=== PATIENT | male | born 1955 | race Caucasian/White ===

== ENCOUNTER 2019-08-17 08:33 | Inpatient (IN) | payer MEDICARE, SELFPAY ==
[2019-08-17] VITALS (20 sets, daily range): BP systolic 126–185; BP diastolic 73–116; PULSE 78–100; RESP 16–34; TEMP 36.4; O2SAT 88–98; BMI 28.8
--- NOTE | 2019-08-17 08:48 | XRR_ITS ---
PROCEDURE INFORMATION: Exam: XR Chest, 1 View Exam date and time: 08/17/2019 8:51 AM Age: 64 years old Clinical indication: Shortness of breath; Additional info: Dyspnea TECHNIQUE: Imaging protocol: XR of the chest Views: Frontal portable upright view of the chest. COMPARISON: CR Chest 2 views* [id number] 01/31/2015 7:33 AM FINDINGS: Lungs: The lungs are clear bilaterally. The pulmonary vasculature is normal. Pleural space: No pleural effusion. No pneumothorax. Heart/Mediastinum: The heart is normal in size and contour. Mediastinum: Stable. Bones/joints: Stable. Chronic T8 vertebral body compression deformity less conspicuous than on prior imaging. Other findings: EKG lead present overlying the chest. XR/XR chest 1V portable [id number] IMPRESSION: No acute cardiopulmonary abnormality identified.
--- NOTE | 2019-08-17 08:50 | ECG_ITS ---
Measurements Intervals [place] Rate: 88 P: 79 NE: 174 QRS: 48 QRSD: 102 T: 73 QT: 350 QTc: 425 SINUS RHYTHM WITH OCCASIONAL VENTRICULAR PREMATURE COMPLEXES INDETERMINATE AXIS Compared to ECG 01/31/2015 07:50:43 Ventricular premature complex(es) now present Indeterminate axis now present Sinus bradycardia no longer present T-wave abnormality no longer present Electronically Signed On 08-18-2019 20:02:40 CDT by Latoya Key M.D. [id number] f
--- NOTE | 2019-08-17 08:51 | ED_ITS ---
HPI - SOB/Dyspnea General: Chief Complaint: Shortness of Breath/Dyspnea Stated Complaint: sob Time Seen by Provider: 08/17/19 08:38 History of Present Illness: HPI Narrative: Increasing shortness of breath for the past 2 days. Patient is a 1-1/2 pack-a-day smoker. He does not use oxygen or to take nebulizer treatments. MD elicited complaint: shortness of breath Pertinent past history: COPD Onset (ago): day(s) Timing: constant and progressively worsening Severity: severe Exacerbating factors: exertion Relieving factors: nothing Known history of: COPD Review of Systems General: Reports: 10 or more systems reviewed and unremarkable except in HPI and below Resp: Reports: dyspnea and wheezing PFS ED PFSH: Social History Smoking and tobacco status: current every day smoker Physical Exam HENMT: COMMON NORMALS: normocephalic and atraumatic HEAD & SCALP: normocephalic and atraumatic Neck/C-Spine: COMMON NORMALS: full ROM, no meningeal signs and no JVD Resp: EFFORT & INSPECTION: Yes respiratory distress, Yes labored, Yes uses accessory muscles and Yes audible wheezes AUSCULTATION: wheezes Cardio: COMMON NORMALS: no JVD, regular rate and regular rhythm RATE: regular rate RHYTHM: regular rhythm GI: COMMON NORMALS: Normal to inspection, nondistended, normoactive bowel sounds present Extremity: COMMON NORMALS: normal to inspection, full ROM and no pedal edema Neuro: MENINGEAL SIGNS: Yes no meningeal signs Course Vital Signs: Vital signs: Vital Signs Temperature 97.6 F 08/17/19 08:40 Pulse Rate 83 08/17/19 10:34 Respiratory Rate 22 H 08/17/19 10:34 Blood Pressure 126/91 08/17/19 10:34 Pulse Oximetry 97 08/17/19 10:34 MDM - SOB/Dyspnea Lab Data: Labs: Lab Results 08/17/19 08/17/19 08/17/19 Range/Units 08:45 08:45 08:45 WBC 11.8 H (4.0-10.0) 10^3/ uL RBC 5.85 H (4.1-5.3) 10^6/u L Hgb 18.7 H (11.7-16.6) g/dL Hct 56.9 H (42.0-52.0) % MCV 97.3 H (80-94) fL MCH 32.0 (28.0-34.0) pg MCHC 32.9 (30.0-36.0) g/dL RDW 12.8 (12.1-15.1) % Plt Count 221 (130-400) 10^3/c mm MPV 10.0 (7.4-10.4) fL Neut % (Auto) 67.5 % Lymph % (Auto) 19.4 % [place] % (Auto) 6.4 % Eos % (Auto) 6.0 % Baso % (Auto) 0.4 % Neut # (Auto) 8.0 H (1.8-7.7) 10^3/u L Lymph # (Auto) 2.3 (0.8-4.8) 10^3/u L [place] # (Auto) 0.8 (0.2-0.9) 10^3/u L Eos # (Auto) 0.7 (0.0-0.8) 10^3/u L Baso # (Auto) 0.1 (0.0-0.1) 10^3/u L Nucleated RBC % (a uto) 0 % Nucleated RBCs # 0.0 /100WBC Sodium 136 (136-145) mmol/L Potassium 4.6 (3.5-5.1) mmol/L Chloride 101 (98-107) mmol/L Carbon Dioxide 22 (22-29) mmol/L Anion Gap 17.6 (5-19) BUN 10 (8-23) mg/dL Creatinine 0.7 (0.7-1.2) mg/dL GFR Calculation 113.2 (90-130) mL/min Glucose 120 H (65-115) mg/dL Calculated Osmolal ity 279 L (285-295) mOsm/k g Lactic Acid 1.5 (0.5-2.2) mmol/L Calcium 9.4 (8.5-10.5) mg/dL Total Bilirubin 1.1 (0.15-1.2) mg/dL AST 35 (0-40) U/L ALT 39 (0-41) U/L Alkaline Phosphata se 78 (40-130) IU/L Troponin T Baselin e (0-15) ng/mL NT-Pro-B Natriuret Pep 101 (0-125) pg/mL Total Protein 7.7 (6.6-8.7) g/dL Albumin 5.1 (3.5-5.2) g/dL Globulin 2.6 (1.3-4.6) g/dL Influenza Type A A g (Negative) Influenza Type B A g (Negative) 08/17/19 08/17/19 Range/Units 08:45 09:38 WBC (4.0-10.0) 10^3/ uL RBC (4.1-5.3) 10^6/u L Hgb (11.7-16.6) g/dL Hct (42.0-52.0) % MCV (80-94) fL MCH (28.0-34.0) pg MCHC (30.0-36.0) g/dL RDW (12.1-15.1) % Plt Count (130-400) 10^3/c mm MPV (7.4-10.4) fL Neut % (Auto) % Lymph % (Auto) % [place] % (Auto) % Eos % (Auto) % Baso % (Auto) % Neut # (Auto) (1.8-7.7) 10^3/u L Lymph # (Auto) (0.8-4.8) 10^3/u L [place] # (Auto) (0.2-0.9) 10^3/u L Eos # (Auto) (0.0-0.8) 10^3/u L Baso # (Auto) (0.0-0.1) 10^3/u L Nucleated RBC % (a uto) % Nucleated RBCs # /100WBC Sodium (136-145) mmol/L Potassium (3.5-5.1) mmol/L Chloride (98-107) mmol/L Carbon Dioxide (22-29) mmol/L Anion Gap (5-19) BUN (8-23) mg/dL Creatinine (0.7-1.2) mg/dL GFR Calculation (90-130) mL/min Glucose (65-115) mg/dL Calculated Osmolal ity (285-295) mOsm/k g Lactic Acid (0.5-2.2) mmol/L Calcium (8.5-10.5) mg/dL Total Bilirubin (0.15-1.2) mg/dL AST (0-40) U/L ALT (0-41) U/L Alkaline Phosphata se (40-130) IU/L Troponin T Baselin e 9 (0-15) ng/mL NT-Pro-B Natriuret Pep (0-125) pg/mL Total Protein (6.6-8.7) g/dL Albumin (3.5-5.2) g/dL Globulin (1.3-4.6) g/dL Influenza Type A A g Negative (Negative) Influenza Type B A g Negative (Negative) Discharge Plan Discharge Patient Disposition: Admitted As Inpatient Clinical Impression: Acute exacerbation of chronic obstructive airways disease, Acute respiratory distress Condition: Fair Coding Level of Care Code ED Case Manager Specialist for Jaylen Fwd Exam Detailed
[2019-08-17] MEDS: sodium chloride 0.9% 1,000 ML 999 ML IV (08:58)
--- NOTE | 2019-08-17 09:03 | PC.NURSE ---
RT at bedside to draw ABG and give breathing treatment. Pt placed on isolation.
[2019-08-17 09:07] LABS: Basophils # 0.1 10^3/uL (0.0-0.1); Basophils % 0.4 %; Eosinophils # 0.7 10^3/uL (0.0-0.8); Hematocrit 56.9 % (42.0-52.0); Hemoglobin 18.7 g/dL (11.7-16.6); Lymphocytes # 2.3 10^3/uL (0.8-4.8); Lymphocytes % 19.4 %; Mean Corpuscular HGB Conc 32.9 g/dL (30.0-36.0); Mean Corpuscular Volume 97.3 fL (80-94); Monocytes # 0.8 10^3/uL (0.2-0.9); Monocytes % 6.4 %; Neutrophils % 67.5 %; Nucleated Red Blood Cells % 0 %; Platelet Count 221 10^3/cmm (130-400); Red Blood Count 5.85 10^6/uL (4.1-5.3); Red Cell Distribution Width 12.8 % (12.1-15.1); White Blood Count 11.8 10^3/uL (4.0-10.0)
[2019-08-17] MEDS: ipratropium-albuterol 3 mL Neb INHALATION ×3 (09:10→11:11)
[2019-08-17 09:18] LABS: Lactic Sepsis W/Reflex 1.5 mmol/L (0.5-2.2)
[2019-08-17 09:21] LABS: Troponin(5th) Baseline 9 ng/mL (0-15)
[2019-08-17 09:27] LABS: ABG PCO2 37.8 mmHg (35-45); ABG PH Result 7.39 (7.35-7.45); Arterial Blood Gas Hematocrit 58.6 % (42-52); Base Excess ABG -1.8 mmol/L (-2.0-2.0); Blood Gas Allen Test Pos; Blood Gas Sample Site Radial, left; Blood Gas Sample Type Arterial; HCO3 ABG 22.7 mmol/L (22-26); Oxygen Device NC; PO2 ABG 74.1 mmHg (80.0-100.0)
--- NOTE | 2019-08-17 09:28 | PC.NURSE ---
XR performed at bedside
[2019-08-17 09:30] LABS: Alanine Aminotransferase 39 U/L (0-41); Albumin Level 5.1 g/dL (3.5-5.2); Alkaline Phosphatase 78 IU/L (40-130); Anion Gap 17.6 (5-19); Aspartate Amino Transferase 35 U/L (0-40); Blood Urea Nitrogen 10 mg/dL (8-23); Calcium 9.4 mg/dL (8.5-10.5); Carbon Dioxide 22 mmol/L (22-29); Chloride 101 mmol/L (98-107); Creatinine Clr Calc Pharmacy 110.9453; Globulin 2.6 g/dL (1.3-4.6); Glomerular Filtration Rate 113.2 mL/min (90-130); Glucose 120 mg/dL (65-115); NT Pro B Type Natriuretic Pept 101 pg/mL (0-125); Osmolality Calculated 279 mOsm/kg (285-295); Potassium 4.6 mmol/L (3.5-5.1); Sodium 136 mmol/L (136-145); Total Bilirubin 1.1 mg/dL (0.15-1.2); Total Protein 7.7 g/dL (6.6-8.7)
--- NOTE | 2019-08-17 09:41 | PC.NURSE ---
Pt swabbed for COVID and flu at this time. Pt also provided a sputum sample at this time.
[2019-08-17 10:09] LABS: Influenza A by IFA Negative (Negative); Influenza B by IFA Negative (Negative)
--- NOTE | 2019-08-17 10:47 | PC.NURSE ---
2nd EKG done and 2 hr troponin drawn.
--- NOTE | 2019-08-17 10:50 | ECG_ITS ---
Measurements Intervals [place] Rate: 74 P: -26 UT: 154 QRS: 10 QRSD: 100 T: 68 QT: 392 QTc: 437 SINUS RHYTHM WITH SINUS ARRHYTHMIA LOW QRS VOLTAGE IN EXTREMITY LEADS [QRS DEFLECTION < 0.5 mV IN LIMB LEADS] Compared to ECG 01/31/2015 07:50:43 Low QRS voltage now present Sinus bradycardia no longer present T-wave abnormality no longer present Electronically Signed On 08-18-2019 20:26:13 CDT by Latoya Key M.D. [id number] f
[2019-08-17 11:09] LABS: Troponin 5 2HR 7.07 ng/mL (0-15)
[2019-08-17 11:14] LABS: Troponin 5 2HR Delta -1.93 ABS# (0-10)
[2019-08-17] MEDS: sodium chloride 0.9% 1,000 ML 125 ML IV ×2 (12:30→20:27)
--- NOTE | 2019-08-17 14:50 | ECG_ITS ---
Measurements Intervals [place] Rate: 92 P: 70 CA: 197 QRS: 36 QRSD: 86 T: 53 QT: 360 QTc: 446 SINUS RHYTHM WITH OCCASIONAL VENTRICULAR PREMATURE COMPLEXES MINIMAL ST DEPRESSION [0.025+ mV ST DEPRESSION] Compared to ECG 01/31/2015 07:50:43 Ventricular premature complex(es) now present ST (T wave) deviation now present Sinus bradycardia no longer present T-wave abnormality no longer present Electronically Signed On 08-18-2019 20:23:29 CDT by Latoya Key M.D. [id number]
[2019-08-17] MEDS: albuterol 8 gm MDI 2 PUFF INHALATION (16:28)
[2019-08-17 18:04] LABS: Troponin 5 6HR 7.86 ng/mL (0-15)
--- NOTE | 2019-08-17 22:25 | PM.HP ---
Providers/Chief Complaint Admitting Physician: Carol Collins MD Chief Complaint: sob History of Present Illness Roscoe Moulton is a 64 year old male he smokes a pack and a half a day who presented to the emergency room with difficulty breathing. Symptoms of been going on for several days. He has had a cough productive of whitish sputum. No blood is been noted. Denies any fever. He is not on any home oxygen nor is he on any breathing treatments. Denies any sick contacts. On arrival to the emergency room he was wheezing quite a bit. He received some steroids and a breathing treatment. ABG showed 7.3 . He was put on some oxygen therapy. Given the need for oxygen, he is being admitted for further evaluation and treatment. Review of Systems Const: Reports: fever(s) and chills; Denies: change in appetite ENMT: Reports: throat pain (Scratchy) and nasal congestion Card: Reports: edema; Denies: chest pain or palpitations Resp: Reports: dyspnea, productive cough, non-productive cough and wheezing; Denies: pain on inspiration or hemoptysis GI: Denies: abdominal pain, nausea, vomiting, diarrhea or constipation : Denies: difficulty urinating Musc: Denies: neck pain or extremity pain Skin/Breast: Denies: rash or pruritus Neuro: Denies: headache(s), numbness in extremities, weakness in extremities or dizziness Psych: Denies: anxiety or depression [place]man/Lymph: Denies: easy bruising or easy bleeding Medications/Allergies Home Medications Medication Instructions Recorded Confirmed Last Taken Type aspirin 325 mg PO DAILY 08/17/19 08/17/19 08/16/19 History cetirizine 10 mg PO DAILY 08/17/19 08/17/19 08/16/19 History lisinopril 10 mg PO DAILY 08/17/19 08/17/19 08/16/19 History sildenafil (pulm.hypertension) 20 - 40 mg PO PRN PRN 08/17/19 08/17/19 Unknown History Allergies Allergy/AdvReac Type Severity Reaction Status Date / Time morphine Allergy ADR-Halluci Verified 08/17/19 08:51 nating PFSH Acute PFSH: Medical History (Updated 08/18/19 @ 03:08 by Carol Collins MD) COPD (chronic obstructive pulmonary disease) Erectile dysfunction Prescription for sildenafil Hypertension Peripheral vascular disease Surgical History (Updated 08/18/19 @ 03:03 by Carol Collins MD) History of appendectomy History of right knee surgery History of tonsillectomy Family History (Updated 08/18/19 @ 03:03 by Carol Collins MD) Other Hypertension Social History (Updated 08/18/19 @ 03:04 by Carol Collins MD) Smoking and tobacco status: current every day smoker cigarettes Number of cigarettes per day: >20 Alcohol intake: current Alcohol intake frequency: 3 or more drinks per day Alcohol type: beer Vitals/I&O/Wt Last Vital Signs Temp 97.6 F 08/17/19 08:40 Pulse 89 08/17/19 20:00 Resp 24 H 08/17/19 20:00 BP 129/82 08/17/19 20:00 Pulse Ox 92 08/17/19 20:00 08/17/19 08/17/19 08/17/19 06:59 14:59 22:59 Intake Total 1300 / 1300 1443.75 / 2743.75 Output Total 825 / 825 Balance 1300 / 1300 618.75 / 1918.75 Weight last 48 hrs Weight 96.615 kg Physical Exam Narrative: EXAM NARRATIVE: Patient sitting up in bed. He did not feel great but he does feel better than he did when he came in. He feels like the treatments in the ER helped. He is normocephalic atraumatic, eye movements are intact, nasopharynx with some clear rhinorrhea, oropharynx is clear, neck is supple, lungs with scattered wheezes throughout, no accessory muscle use presently, regular rhythm, abdomen soft, nondistended with positive bowel sounds, trace lower extremity edema without any acute synovitis noted, speech clear, face symmetric, moves all extremities, some chronic but not acute skin changes noted Data : 08/17/19 08:45 08/17/19 08:45 Micro: Microbiology 08/17/19 09:38 Gram Stain - Final Sputum - Expectorated Sputum 08/17/19 10:43 Blood Culture - Preliminary Blood SPECIMEN COLLECTED 08/17/19 08:45 Blood Culture - Preliminary Blood SPECIMEN COLLECTED A&P Assessment and plan (1) Acute respiratory distress: Status: Acute (2) Acute exacerbation of chronic obstructive airways disease: I do not believe he carries a formal diagnosis of COPD Status: Acute (3) Polycythemia: From a combination I suspect of smoking and hypoxemia that has not been identified Status: Acute (4) Hypertension: Status: Chronic Qualifiers: Hypertension type: essential hypertension Qualified Code(s): I10 - Essential (primary) hypertension (5) Nicotine dependence, cigarettes, with other nicotine-induced disorders: Status: Acute Additional A&P Information Observation admission COVID testing Inhalers and steroids Antibiotics Continue home lisinopril Check H&H in the morning Check BNP We will need home oxygen evaluation prior to discharge Blood and sputum cultures are pending Nicotine patch if needed Supportive care otherwise Full code Plans discussed with patient and he was given an opportunity to ask questions Attestations Medical Necessity Statement*: Currently anticipated stay less than 2 midnights in this gentleman who smokes clinically has what looks like COPD exacerbation. He is requiring oxygen now. I think some of this is longstanding rather than acute and he has tolerated it well thus far given the degree of polycythemia normal pH noted. We will see how he does with treatments and reevaluate in the morning Coding Level of Care Code Acute Pool Table Mechanic for Jaylen Cavazos Diagnoses Acute respiratory distress R06.03 Acute exacerbation of chronic obstructive airways disease J44.1 Polycythemia D75.1 Hypertension I10 Hypertension type: essential hypertension Nicotine dependence, cigarettes, with other nicotine-induced disorders F17.218
[2019-08-18] VITALS (9 sets, daily range): BP systolic 131–162; BP diastolic 75–92; PULSE 74–93; RESP 16–24; TEMP 36.4–36.8; O2SAT 91–96
[2019-08-18] MEDS: sodium chloride 0.9% 1,000 ML 125 ML IV (03:01)
[2019-08-18] MEDS: albuterol 8 gm MDI 2 PUFF INHALATION ×3 (04:40→20:50)
[2019-08-18 05:28] LABS: NT Pro B Type Natriuretic Pept 305 pg/mL (0-125)
[2019-08-18] MEDS: enoxaparin 40 mg/0.4 mL Syringe SUBCUT (05:45)
[2019-08-18] MEDS: levoFLOXacin 750 mg Tablet PO (05:45)
--- NOTE | 2019-08-18 06:40 | PC.NURSE ---
Transfer Patient transferred to [facility] room 257 into droplet/contact isolation. Report given to Paulino Hercules.
[2019-08-18] MEDS: lisinopril 10 mg Tablet PO (09:03)
[2019-08-18] MEDS: aspirin 325 mg Tablet PO (09:03)
[2019-08-18] MEDS: cetirizine 10 mg Tablet PO (09:03)
[2019-08-18] MEDS: nicotine 21 mg Patch 1 PATCH TRANSDERMA (09:05)
--- NOTE | 2019-08-18 11:59 | P.PN_ITS ---
Subjective Subjective: Interval history: Chart reviewed, VSS, on NC, labs noted. COVID-19 test results negative so we will discontinue isolation precautions. Continues to have a nonproductive cough though he states that overall he is feeling much better today. He is chronically on 2 L NC though previously reported not being oxygen dependent. Medications: Reviewed: Yes Medication Review Details: Active Medications Generic Name Dose Route Start Last Admin Trade Name Freq PRN Reason Stop Dose Admin Acetaminophen 650 mg 08/17/19 10:33 Tylenol PO Q6H PRN Mild/Mod Pain Or Temp >/= 101 Albuterol Sulfate 2 puff 08/17/19 16:26 08/18/19 11:42 Ventolin INHALATION 2 puff Q4H.RESPIRATORY P RN Administration SHORTNESS OF DASHAWN TH Albuterol/Ipratrop ium 3 ml 08/17/19 10:33 Duoneb INHALATION Q6H.RESPIRATORY P RN SHORTNESS OF DASHAWN TH Aspirin 325 mg 08/18/19 09:00 08/18/19 09:03 Aspirin PO 325 mg DAILY JOANTHON Administration Bisacodyl 10 mg 08/18/19 03:05 Dulcolax PO DAILY PRN CONSTIPATION Calcium Carbonate 1,000 mg 08/18/19 03:05 Tums PO Q4H PRN DYSPEPSI Cetirizine HCl 10 mg 08/18/19 09:00 08/18/19 09:03 Zyrtec PO 10 mg DAILY JONATHON Administration Enoxaparin Sodium 40 mg 08/18/19 03:15 08/18/19 05:45 Lovenox SUBCUT 40 mg Q24H JONATHON Administration Sodium Chloride 1,000 mls @ 75 ml s/hr 08/17/19 10:45 08/18/19 09:15 Sodium Chloride 0.9% IV Not Given .[id number] JONATHON Levofloxacin 750 mg 08/18/19 06:00 08/18/19 05:45 Levaquin PO 750 mg DAILY@0600 JONATHON Administration Protocol Lisinopril 10 mg 08/18/19 09:00 08/18/19 09:03 Prinivil PO 10 mg DAILY JONATHON Administration Methylprednisolone Sodium Succinate 60 mg 08/18/19 03:20 08/18/19 09:03 Solu-Medrol IVP 60 mg Q6H JONATHON Administration Nicotine 1 patch 08/18/19 09:00 08/18/19 09:05 Nicoderm 21 Mg P atch TRANSDERMA 1 patch DAILY JONATHON Administration Ondansetron HCl 4 mg 08/17/19 10:33 Zofran IVP Q6H PRN NAUSEA AND VOMITI NG morphine Allergy (Verified 08/17/19 08:51) ADR-Hallucinating Vitals/I&O/Wt Last Vital Signs Temp 97.8 F 08/18/19 11:41 Pulse 78 08/18/19 11:41 Resp 18 08/18/19 11:41 BP 131/75 08/18/19 11:41 Pulse Ox 96 08/18/19 11:41 08/17/19 08/18/19 08/18/19 22:59 06:59 14:59 Intake Total 1443.75 / 2743.75 1060.833 / 3804.583 Output Total 825 / 825 1025 / 1850 Balance 618.75 / 1918.75 35.833 / 1954.583 Weight last 48 hrs Weight 96.615 kg Physical Exam Const: COMMON NORMALS: no acute distress and patient oriented x3 GENERAL APPEARANCE: cooperative and comfortable ORIENTATION/CONSCIOUSNESS: Yes awake HENMT: COMMON NORMALS: normocephalic, atraumatic and moist oral mucous membranes HEAD & SCALP: normocephalic and atraumatic GENERAL EAR: hearing grossly impaired Laterality: diffuse Eye: COMMON NORMALS: Equal, round and reactive pupils present, EOMs intact bilaterally and conjunctivae normal CONJUNCTIVA: Yes conjunctivae normal PUPIL: Yes Equal, round and reactive pupils present Neck/C-Spine: COMMON NORMALS: full ROM GENERAL: Yes normal visual inspection and Yes trachea midline Resp: COMMON NORMALS: normal respiratory effort, No retractions and No use of accessory muscles EFFORT & INSPECTION: Yes able to speak in complete sentences, Yes symmetric chest movement, No tachypneic and Yes Actively coughing non-productive AUSCULTATION: wheezes expiratory wheezes and diminished lung sounds OTHER: -on 3 L NC Cardio: COMMON NORMALS: regular rate, regular rhythm, S1 normal heart sound present, S2 normal heart sound present and No murmurs present (Cardio) RATE: regular rate RHYTHM: regular rhythm HEART SOUNDS: S1 normal heart sound present and S2 normal heart sound present GI: COMMON NORMALS: Normal to inspection, nondistended, normoactive bowel sounds present, Soft to palpation and non-tender PALPATION: Yes Soft to palpation Extremity: COMMON NORMALS: normal to inspection, full ROM, no clubbing, cyanosis or edema and no pedal edema Neuro: COMMON NORMALS: patient oriented x3, moves all extremities, no focal motor deficits and no sensory deficits noted Psych: COMMON NORMALS: mental status grossly normal, Normal thought process present, cooperative, normal affect and speech normal SPEECH: Yes normal speech THOUGHT PROCESS: Normal thought process present Skin: COMMON NORMALS: no rashes or lesions noted, no jaundice, no petechiae and no mottling GENERAL SKIN EXAM: no rashes or lesions noted Data : 08/17/19 08:45 08/17/19 08:45 Micro: Microbiology 08/17/19 10:43 Blood Culture - Preliminary Blood NEGATIVE TO DATE 08/17/19 08:45 Blood Culture - Preliminary Blood NEGATIVE TO DATE 08/17/19 09:38 Gram Stain - Final Sputum - Expectorated Sputum A&P Assessment and plan (1) Acute exacerbation of chronic obstructive airways disease: -continue duonebs, steroids, empiric Levaquin -supplemental oxygen as needed, may need home oxygen evaluation prior to d/c as not oxygen dependent at baseline -may need PFTs as outpatient -f/u blood and sputum cx -COVID-19 testing pending results; isolation precautions -noted leukocytosis, repeat labs in AM -CXR unremarkable -afebrile, VSS; continue to monitor -continue to monitor respiratory status Status: Acute (2) Polycythemia: -likely secondary to chronic smoking, hypoxemia -continue to monitor H/H Status: Acute (3) Hypertension: -VSS; continue to monitor -continue oral antihypertensives Status: Chronic Qualifiers: Hypertension type: essential hypertension Qualified Code(s): I10 - Essential (primary) hypertension (4) Nicotine dependence, cigarettes, with other nicotine-induced disorders: -nicotine replacement therapy -smoking cessation recommended Status: Chronic Additional A&P Information -troponins noted with no significant delta -BNP-305, no prior dx of CHF, no indication of fluid overload clinically -cardiac diet as tolerated -DVT ppx with Lovenox -Dispo: home; anticipate possible d/c in 24-48 hrs if continued improvement -Code status: FULL code Attestations Medical Necessity Statement*: Patient requires hospitalization for continued management of acute COPD exacerbation, remains on supplemental oxygen support, IV steroids. Time Spent in Patient Care: Greater than 35 minutes (>than 50% of time spent in counselling and/or direct pt care on unit) . Coding Level of Care Code Acute Human Resources Representative for Elaineg Fwd Exam Comprehensive Diagnoses Acute exacerbation of chronic obstructive airways disease J44.1 Polycythemia D75.1 Hypertension I10 Hypertension type: essential hypertension Nicotine dependence, cigarettes, with other nicotine-induced disorders F17.218
[2019-08-18] MEDS: predniSONE 20 mg Tablet 60 MG PO (22:29)
[2019-08-19] VITALS (7 sets, daily range): BP systolic 142–164; BP diastolic 70–82; PULSE 71–86; RESP 16–24; TEMP 36.6; O2SAT 86–95
[2019-08-19] MEDS: levoFLOXacin 750 mg Tablet PO (06:07)
[2019-08-19] MEDS: enoxaparin 40 mg/0.4 mL Syringe SUBCUT (06:08)
[2019-08-19] MEDS: sodium chloride 0.9% 1,000 ML 125 ML IV (06:09)
[2019-08-19 06:45] LABS: Basophils % 0.1 %; Hematocrit 52.6 % (42.0-52.0); Hemoglobin 17.1 g/dL (11.7-16.6); Lymphocytes # 1.5 10^3/uL (0.8-4.8); Lymphocytes % 11.5 %; Mean Corpuscular HGB Conc 32.5 g/dL (30.0-36.0); Mean Corpuscular Hemoglobin 31.8 pg (28.0-34.0); Mean Platelet Volume 10.8 fL (7.4-10.4); Monocytes # 0.5 10^3/uL (0.2-0.9); Monocytes % 3.9 %; Neutrophils # 10.8 10^3/uL (1.8-7.7); Neutrophils % 83.8 %; Nucleated Red Blood Cells % 0 %; Platelet Count 229 10^3/cmm (130-400); Red Blood Count 5.37 10^6/uL (4.1-5.3); White Blood Count 12.9 10^3/uL (4.0-10.0)
[2019-08-19] MEDS: albuterol 8 gm MDI 2 PUFF INHALATION (09:13)
[2019-08-19] MEDS: aspirin 325 mg Tablet PO (09:17)
[2019-08-19] MEDS: cetirizine 10 mg Tablet PO (09:17)
[2019-08-19] MEDS: predniSONE 20 mg Tablet 60 MG PO (09:17)
[2019-08-19] MEDS: nicotine 21 mg Patch 1 PATCH TRANSDERMA (09:18)
[2019-08-19] MEDS: lisinopril 10 mg Tablet PO (09:18)
[2019-08-19] MEDS: sodium chloride 0.9% 1,000 ML 75 ML IV (09:23)
--- NOTE | 2019-08-19 10:25 | P.DS_ITS ---
Discharge Providers Date of Admission: 08/18/19 12:09 Date of Discharge: August 19, 2019 Attending Provider at Admission: Carol Collins MD Attending Provider at Discharge: Cherelle Awad MD Primary Care Provider: DOCTOR NOT ON FILE Diagnoses at Discharge Discharge Diagnosis (1) Acute exacerbation of chronic obstructive airways disease: Status: Acute Problem details: -continue duonebs, steroids, empiric Levaquin -supplemental oxygen as needed, home oxygen evaluation prior to d/c as not oxygen dependent at baseline -may need PFTs as outpatient -blood cx: prelim negative; sputum cx-mixed fortino, gram stain-moderate GPC, moderate epithelial cells (may be low yield sample) -COVID-19 testing negative; off isolation precautions -noted leukocytosis which is likely steroid induced as clinical status is improving -CXR unremarkable -afebrile, VSS; continue to monitor -continue to monitor respiratory status (2) Polycythemia: Status: Acute Problem details: -likely secondary to chronic smoking, hypoxemia -continue to monitor H/H (3) Hypertension: Status: Chronic Problem details: -VSS; continue to monitor -continue oral antihypertensives Qualifiers: Hypertension type: essential hypertension Qualified Code(s): I10 - Essential (primary) hypertension (4) Nicotine dependence, cigarettes, with other nicotine-induced disorders: Status: Chronic Problem details: -nicotine replacement therapy -smoking cessation recommended Reason for Visit Reason for Visit: Reason For Visit: sob Hospital Course Hospital Course: Patient was admitted to the medical surgical floor and started on IV steroids, nebulizer treatments and empiric antibiotics secondary to acute COPD exacerbation. Due to his presenting respiratory symptoms he was tested for COVID-19 and placed on isolation precautions. He tested negative and isolation precautions have been discontinued. He has required supplemental oxygen support throughout his hospital stay and has responded well to the aforementioned treatment. He is not oxygen dependent at baseline so has had a home oxygen evaluation done prior to discharge and qualifies for 2 L, appropriate DME arranged. He has not been on any inhaler or nebulizer treatments at baseline so will prescribe Combivent and albuterol inhaler as needed. He has been transitioned to oral steroids which will continue for several more days in addition to oral antibiotic therapy. Chest x-ray was unremarkable. Patient is an active smoker and has been counseled extensively on need for smoking cessation particularly in light of potential need for supplemental oxygen and likelihood of progression of lung disease. Patient's clinical status has also been reviewed with his daughter Allison over the phone. He will need to follow-up with his primary care provider within 1 week. He would benefit from pulmonary function testing and potentially pulmonology follow-up as well which can be discussed further with his primary care provider. Discharge Summary: -Patient to follow-up with his primary care provider as scheduled on 08/26/2019 -Patient to have pulmonary function testing once scheduled Physical Exam Const: COMMON NORMALS: no acute distress and patient oriented x3 GENERAL APPEARANCE: cooperative and comfortable ORIENTATION/CONSCIOUSNESS: Yes awake HENMT: COMMON NORMALS: normocephalic, atraumatic and moist oral mucous membranes HEAD & SCALP: normocephalic and atraumatic GENERAL EAR: hearing grossly impaired Laterality: diffuse Eye: COMMON NORMALS: Equal, round and reactive pupils present, EOMs intact bilaterally and conjunctivae normal CONJUNCTIVA: Yes conjunctivae normal PUPIL: Yes Equal, round and reactive pupils present Neck/C-Spine: COMMON NORMALS: full ROM GENERAL: Yes normal visual inspection and Yes trachea midline Resp: COMMON NORMALS: normal respiratory effort, No retractions and No use of accessory muscles EFFORT & INSPECTION: Yes able to speak in complete sentences, Yes symmetric chest movement, No tachypneic and Yes audible wheezes AUSCULTATION: wheezes expiratory wheezes and diminished lung sounds OTHER: - on 3 L NC Cardio: COMMON NORMALS: regular rate, regular rhythm, S1 normal heart sound present, S2 normal heart sound present and No murmurs present (Cardio) RATE: regular rate RHYTHM: regular rhythm HEART SOUNDS: S1 normal heart sound present and S2 normal heart sound present GI: COMMON NORMALS: Normal to inspection, nondistended, normoactive bowel sounds present, Soft to palpation and non-tender PALPATION: Yes Soft to palpation Extremity: COMMON NORMALS: normal to inspection, full ROM, no clubbing, cyanosis or edema and no pedal edema Neuro: COMMON NORMALS: patient oriented x3, moves all extremities, no focal motor deficits and no sensory deficits noted Psych: COMMON NORMALS: mental status grossly normal, Normal thought process present, cooperative, normal affect and speech normal SPEECH: Yes normal speech THOUGHT PROCESS: Normal thought process present Skin: COMMON NORMALS: no rashes or lesions noted, no jaundice, no petechiae and no mottling GENERAL SKIN EXAM: no rashes or lesions noted Discharge Data Data Completed and Pending: Completed Studies During Hospitalization Category Date Time Status XR chest 1V neil ble 88277 Urgent Exams 08/17/19 08:48 Completed Pending at discharge Category Date Time Status Blood Culture Sta t Lab 08/17/19 10:43 Results Sputum Culture an d Gram Stain Stat Lab 08/17/19 09:38 Results Labs from last 24 hours 08/19/19 08/17/19 05:20 09:30 WBC 12.9 H RBC 5.37 H Hgb 17.1 H Hct 52.6 H MCV 98.0 H MCH 31.8 MCHC 32.5 RDW 13.0 Plt Count 229 MPV 10.8 H Neut % (Auto) 83.8 Lymph % (Auto) 11.5 [place] % (Auto) 3.9 Eos % (Auto) 0.0 Baso % (Auto) 0.1 Neut # (Auto) 10.8 H Lymph # (Auto) 1.5 [place] # (Auto) 0.5 Eos # (Auto) 0.0 Baso # (Auto) 0.0 Nucleated RBC % (a uto) 0 Nucleated RBCs # 0.0 Nasal/Oral COVID-1 9 PCR See comment Vitals: Last Vital Signs Temp 97.9 F 08/19/19 08:00 Pulse 74 08/19/19 09:16 Resp 18 08/19/19 09:16 BP 148/82 08/19/19 08:00 Pulse Ox 95 08/19/19 09:16 Discharge Plan Discharge Patient Disposition: Home, Self-Care Condition: Fair Prescriptions: New prednisone 20 mg Tablet 60 mg PO DAILY 3 Days Qty: 9 RF: 0 levofloxacin 750 mg Tablet 750 mg PO DAILY@0600 Qty: 3 RF: 0 albuterol sulfate 90 mcg/actuation HFA aerosol inhaler 2 inh INHALATION Q4H PRN (Reason: shortness of breath or wheezing) Qty: 18 RF: 0 Combivent Respimat 20-100 mcg/actuation mist 1 puff INHALATION Q6H Qty: 4 RF: 0 Continued cetirizine 10 mg Tablet 10 mg PO DAILY RF: 0 aspirin 325 mg Tablet 325 mg PO DAILY RF: 0 sildenafil (pulm.hypertension) 20 mg tablet 20 - 40 mg PO PRN PRN (Reason: Sexual Activity) RF: 0 Changed lisinopril 20 mg tablet 20 mg PO DAILY 30 Days Qty: 30 RF: 0 Discharge Orders: Discharge Order (Routine); Ordered 08/19/19 Ordered By: Cherelle Awad Other Ambulatory Orders: DME: Oxygen (Order) Location: None Selected Ordered By: Cherelle Awad Pulmonary Function Screen with Bronchodilator (Routine) Timeframe: 1 Month Facility: [facility] - Location: Respiratory Therapy Ordered By: Cherelle Awad Referrals: Verna Bruner NP [Referring] - 08/26/19 10:30 am (You have an appointment with Verna on July at 10:30am for follow up.) Discharge Diet: Low Salt Discharge Activity: Resume usual activity Patient Instructions: COPD, Albuterol (By breathing), Prednisone (By mouth), Nicotine (Absorbed through the skin), Levofloxacin (By mouth), Ipratropium/Albuterol (By breathing), COPD Stoplight, Polycythemia Vera Discharge Attestations Time Spent in Discharge Care*: greater than 30 min Specific Discharge Activities: Specific discharge activities: educating patient, educating and/or supporting family/caregiver (spoke to yahir Cooper on the phone), discussing with case management social worker/social workers/dc planners, documenting/other paperwork and evaluating patient/reviewing data Time Spent in Smoking Cessation: Time spent discussing smoking cessation with patient: 3 to 10 minutes Details of Smoking Cessation Education: -Risk of smoking with oxygen on, and worsening lung disease with continued smoking Status at Discharge: Cognitive status at discharge: cognitively intact , Behavioral status at discharge: cooperative , Functional status at discharge: independent ambulation Overall status at discharge: patient is progressing back to baseline Quality Metrics Clinical Quality Measures During this hospital stay, did patient experience: None Coding Level of Care Code Acute Asset Protection Assistant for Elaineg Fwd Exam Comprehensive Diagnoses Acute exacerbation of chronic obstructive airways disease J44.1 Polycythemia D75.1 Hypertension I10 Hypertension type: essential hypertension Nicotine dependence, cigarettes, with other nicotine-induced disorders F17.218
--- NOTE | 2019-08-19 11:27 | PC.CHAP ---
Pastoral Care Encounter/Spiritual Assessment Type of Contact [] Declined tower cleaner visit [] Patient/Family/Request visit [] Outpatient visit [] Follow-up visit [] Physician referral [] Code/Alert [X] Routine visit [] Staff referral [] Actively dying [] Patient sleeping [] Family support [] [] Out of room [] Palliative care [] [X] Receiving care in room [] Pre-surgical visit [] Trauma [] Long length of stay [] ICU visit [] Other: Relational/Emotional Strength [X] Patient feels connected with others/family/visitors/staff [] Distress [] Loneliness/isolation [] Abandonment Spirituality of Patient [X] Person of Sarah [] Attends Denominational of their Sarah [X] Believes in Prayer [] Reads Bible or Lutheran materials [] There are Spiritual issues to be addressed Head Of [employer] Interventions [] Prayer [] Active listening [] Non-anxious presence [] Spiritual/emotional support [] Crisis/trauma care [] Spiritual counseling [] Bereavement support [] Provided bereavement packet [] Provided Bible/devotional materials [] Provided toy/stuffed animal, coloring book to patient or family member [] Provided Communion [] Anointing/[place] [] Salvation [X] Completed spiritual assessment [] Other: Impact on Illness or Injury [] Angry [] Fearful [x] Anxious [] Often cries [] Exhaustion [] Unable to work [] Unable to attend buddhist [] Unable to walk/stand [] Unable to read [] Unable to drive [] Unable to eat/drink [] Unable to sleep [] Unable to be with family [] Patient intubated [] Other: Summary SOB, Quite Smoking 2ed time, getting ready to go home, good attitude Time spent with patient 10 mins Pastoral Care Encounter/Spiritual Assessment Type of Contact [] Declined tower cleaner visit [] Patient/Family/Request visit [] Outpatient visit [] Follow-up visit [] Physician referral [] Code/Alert [] Routine visit [] Staff referral [] Actively dying [] Patient sleeping [] Family support [] [] Out of room [] Palliative care [] [] Receiving care in room [] Pre-surgical visit [] Trauma [] Long length of stay [] ICU visit [] Other: Relational/Emotional Strength [] Patient feels connected with others/family/visitors/staff [] Distress [] Loneliness/isolation [] Abandonment Spirituality of Patient [] Person of Sarah [] Attends Denominational of their Sarah [] Believes in Prayer [] Reads Bible or Lutheran materials [] There are Spiritual issues to be addressed Head Of [employer] Interventions [] Prayer [] Active listening [] Non-anxious presence [] Spiritual/emotional support [] Crisis/trauma care [] Spiritual counseling [] Bereavement support [] Provided bereavement packet [] Provided Bible/devotional materials [] Provided toy/stuffed animal, coloring book to patient or family member [] Provided Communion [] Anointing/[place] [] Salvation [] Completed spiritual assessment [] Other: Impact on Illness or Injury [] Angry [] Fearful [] Anxious [] Often cries [] Exhaustion [] Unable to work [] Unable to attend buddhist [] Unable to walk/stand [] Unable to read [] Unable to drive [] Unable to eat/drink [] Unable to sleep [] Unable to be with family [] Patient intubated [] Other: Summary Time spent with patient
--- NOTE | 2019-08-19 15:29 | PC.NURSE ---
PT DISCHARGE INSTRUCTIONS GONE OVER WITH PT AND DAUGHTER DANTE REQUESTED BY PT. PT UNDERSTANDS INSTRUCTIONS AND HAD NO OTHER QUESTIONS AT THIS TIME, PT INSTRUCTED TO CALL NURSE IF ANY OTHER QUESTIONS ARISE. IV REMOVED AND PT TAKEN DOWN BY MARINA FRANCOIS.
== END 2019-08-19 15:00 | disposition home or self-care (01) | DRG 192 ==
LOC: ER 10:23 → ICU 11:06 → MEDSURG 08-18 06:27
PROVIDERS: Family Medicine; Admitting Provider Hospitalist; Visit Provider Family Medicine
DX: J44.1 Chronic obstructive pulmonary disease with (acute) exacerbation (principal); F17.218 Nicotine dependence, cigarettes, with other nicotine-induced disorders; N52.9 Male erectile dysfunction, unspecified; I10 Essential (primary) hypertension; I73.9 Peripheral vascular disease, unspecified; Z72.89 Other problems related to lifestyle; D75.1 Secondary polycythemia; Z20.828 Contact with and (suspected) exposure to other viral communicable diseases; Z79.82 Long term (current) use of aspirin
CPT/HCPCS: 12345; 36415; 36600; 71045; 80053; 82803; 83605; 83880; 84484; 85025; 87040; 87070; 87205; 87635; 87804; 93005; 94640; 96372; 96375; 99284; G0378; J1650; J2930; J7030; J7512

== ENCOUNTER 2019-09-17 12:50 | Outpatient (CLI) | payer MEDICARE, SELFPAY ==
--- NOTE | 2019-09-17 13:58 | PFTS_ITS ---
Date of Study:09/17/19 Date of Dictation: MECHANICS: Forced vital capacity (FVC) is normal. Forced expiratory volume in one second (FEV1) is normal. FEV1/FVC is normal. FLOW VOLUME LOOP: Normal. LUNG VOLUMES: Not measured DIFFUSING CAPACITY FOR CARBON MONOXIDE: Not measured INTERPRETATION: The postbronchodilator spirometry is normal. There is no significant postbronchodilator response. MTDD
== END 2019-09-17 12:51 | disposition home or self-care (01) ==
LOC: RT 12:52
PROVIDERS: Visit Provider Family Medicine
DX: R06.02 Shortness of breath (principal); F17.210 Nicotine dependence, cigarettes, uncomplicated
CPT/HCPCS: 94060; J7611